=== PATIENT | female | born 1970 | race African-American/Black ===

== ENCOUNTER 2018-01-17 12:22 | Emergency (ER) | payer MEDICARE, OTHER ==
[~2018-01-17] VITALS: Ht 149.9 cm; Wt 136.4 kg
[~2018-01-17 12:22] MED LIST: IBUP-2071 PO; LISI-661 PO
[2018-01-17] MEDS ORDERED: MET750 PO (12:29)
[2018-01-17] MEDS ORDERED: FURO40I IM (12:29)
[2018-01-17 15:38] LABS: BASOPHILS % (AUTO) 0.8 % (0.0-2.0); EOSINOPHILS % (AUTO) 1.8 % (1.0-6.0); HEMATOCRIT 35.8 % (36-46); LYMPHOCYTES # (AUTO) 4.2 K/uL (1.0-4.8); LYMPHOCYTES % (AUTO) 53.5 % (22.0-44.0); MEAN CORPUSCULAR HEMOGLOBIN 27.3 pg (26.0-34.0); MEAN CORPUSCULAR HGB CONC 33.5 G/dL (31.0-37.0); MEAN CORPUSCULAR VOLUME 82 fL (80-100); MONOCYTES # (AUTO) 0.5 K/uL (0.1-1.0); MONOCYTES % (AUTO) 6.5 % (2.0-9.0); NEUTROPHILS # (AUTO) 2.9 K/uL (1.8-7.7); NEUTROPHILS % (AUTO) 37.4 % (40.0-70.0); PLATELET COUNT (AUTO) 279 K/uL (150-450); RED BLOOD CELL COUNT(AUTO) 4.39 MIL/uL (4.00-5.20); RED CELL DISTRIBUTION WIDTH 13.8 % (11.5-14.5)
[2018-01-17 15:46] LABS: ANION GAP 8 mmol/L (8-16); CALCIUM, TOTAL 9.2 mg/dL (8.8-10.5); CARBON DIOXIDE 25 mmol/L (22-29); CHLORIDE 103 mmol/L (98-107); CREATININE 0.73 mg/dL (0.60-1.30); GLOMERULAR FILTR. RATE CALC > 60 mL/min (>60); GLUCOSE,RANDOM 87 mg/dL (70-110); POTASSIUM 4.3 mmol/L (3.5-5.1); SODIUM SERUM 136 mmol/L (136-145); UREA NITROGEN, BLOOD 11 mg/dL (7-18)
[2018-01-17 15:51] LABS: B-TYPE NATRIURETIC PEPTIDE 10 pg/mL (0-100)
[2018-01-17 15:53] LABS: ALANINE AMINOTRANSFERASE 20 U/L (12-78); ALBUMIN 3.3 g/dL (3.4-5.0); ALKALINE PHOSPHATASE 91 U/L (46-116); ASPARTATE AMINOTRANSFERASE 18 U/L (15-37); BILIRUBIN,TOTAL 0.4 mg/dL (0.1-1.0); CREATINE KINASE, TOTAL 53 U/L (26-192); TOTAL PROTEIN, SERUM 7.1 g/dL (6.4-8.2)
[2018-01-17 16:34] LABS: APPEARANCE,URINE CLOUDY (CLEAR); BILIRUBIN,URINE NEGATIVE (NEGATIVE); GLUCOSE, URINE (UA) NEGATIVE (NEGATIVE); KETONES,URINE NEGATIVE (NEGATIVE); LEUKOCYTE ESTERASE ,URINE NEGATIVE (NEGATIVE); NITRATE,URINE NEGATIVE (NEGATIVE); OCCULT BLOOD,URINE NEGATIVE (NEGATIVE); PH,URINE 6.5 (5.0-8.0); PROTEIN,URINE NEGATIVE (NEGATIVE)
[2018-01-17 18:16] VITALS: BP 105/56
[2018-01-17] MEDS ORDERED: RAPID SEQUENCE KIT [RSI] 1 EACH KIT ONE (18:24)
[2018-01-17] MEDS ORDERED: SUCCINYLCHOLINE CHLORIDE 20 MG/ML 10 ML VIAL ONE (18:25)
== END 2018-01-17 18:20 | disposition home or self-care (01) ==
LOC: EMS 12:25
DX: M47.812 Spondylosis without myelopathy or radiculopathy, cervical region (principal); M48.02 Spinal stenosis, cervical region; I10 Essential (primary) hypertension; R42 Dizziness and giddiness; M79.602 Pain in left arm; E66.01 Morbid (severe) obesity due to excess calories; Z88.0 Allergy status to penicillin; Z68.44 Body mass index [BMI] 60.0-69.9, adult
CPT/HCPCS: 36415; 70450; 71045; 72125; 80053; 81003; 82550; 83880; 84484; 85025; 93005; 99285; J0330

== ENCOUNTER 2022-05-18 11:57 | Emergency (ER) | payer MEDICARE, OTHER ==
[~2022-05-18] VITALS: Ht 149.9 cm; Wt 134.1 kg
[~2022-05-18 11:57] MED LIST changes: +FURO10VI34 IM; -LISI-661 PO; +LISI-893 PO; +METH-661 PO
[2022-05-18] MEDS ORDERED: DEXT354L PO (12:02)
[2022-05-18 12:06] VITALS: BP 158/118
[2022-05-18] MEDS ORDERED: METHOCARBAMOL 500 MG TABLET PO ONE (12:30)
[2022-05-18 12:52] LABS: COVID AG,FIA SOURCE NASOPHARYNGEAL
[2022-05-18 13:22] LABS: INFLUENZA TYPE A NEGATIVE FOR TYPE A (NEGATIVE); INFLUENZA TYPE B NEGATIVE FOR TYPE B (NEGATIVE)
[2022-05-18] MEDS ORDERED: METH-659 PO (13:43)
[2022-05-18] MEDS ORDERED: ALBU8.5H8 IH (13:43)
[2022-05-18] MEDS ORDERED: BENZ-70 PO (13:43)
[2022-05-18] MEDS ORDERED: CloNIDine HCL 0.1 MG TABLET PO ONE (14:00)
== END 2022-05-18 14:24 | disposition home or self-care (01) ==
LOC: EMS 11:57
DX: U07.1 COVID-19 (principal); I10 Essential (primary) hypertension; Z90.710 Acquired absence of both cervix and uterus; Z98.890 Other specified postprocedural states; Z87.39 Personal history of other diseases of the musculoskeletal system and connective tissue; Z88.0 Allergy status to penicillin
CPT/HCPCS: 71045; 87804; 99284

== ENCOUNTER 2022-06-04 15:21 | Emergency (ER) | payer MEDICARE, OTHER ==
[~2022-06-04] VITALS: Ht 147.3 cm; Wt 140.4 kg
[~2022-06-04 15:21] MED LIST changes: +ALBU8.5H8 IH; +BENZ-70 PO; +DEXT354L PO; +METH-659 PO
[2022-06-04] MEDS ORDERED: LOSA-382 PO (15:32)
[2022-06-04 16:06] LABS: BASOPHILS % (AUTO) 0.8 % (0.0-2.0); EOSINOPHILS % (AUTO) 0.7 % (1.0-6.0); LYMPHOCYTES # (AUTO) 2.6 K/uL (1.0-4.8); LYMPHOCYTES % (AUTO) 38.6 % (22.0-44.0); MEAN CORPUSCULAR HEMOGLOBIN 26.8 pg (26.0-34.0); MEAN CORPUSCULAR HGB CONC 32.5 G/dL (31.0-37.0); MEAN CORPUSCULAR VOLUME 82 fL (80-100); MONOCYTES # (AUTO) 0.5 K/uL (0.1-1.0); MONOCYTES % (AUTO) 7.3 % (2.0-9.0); NEUTROPHILS # (AUTO) 3.5 K/uL (1.8-7.7); NEUTROPHILS % (AUTO) 52.6 % (40.0-70.0); PLATELET COUNT (AUTO) 317 K/uL (150-450); RED BLOOD CELL COUNT(AUTO) 4.49 MIL/uL (4.00-5.20); RED CELL DISTRIBUTION WIDTH 14.6 % (11.5-14.5)
[2022-06-04 16:15] LABS: ANION GAP 11 mmol/L (8-16); CALCIUM, TOTAL 9.7 mg/dL (8.8-10.5); CARBON DIOXIDE 24 mmol/L (22-29); CHLORIDE 106 mmol/L (98-107); CREATININE 0.74 mg/dL (0.60-1.30); GLOMERULAR FILTR. RATE CALC > 60 mL/min (>60); GLUCOSE,RANDOM 87 mg/dL (70-110); POTASSIUM 3.7 mmol/L (3.5-5.1); SODIUM SERUM 141 mmol/L (136-145); UREA NITROGEN, BLOOD 7 mg/dL (7-18)
[2022-06-04 16:21] LABS: ALANINE AMINOTRANSFERASE 19 U/L (12-78); ALBUMIN 3.5 g/dL (3.4-5.0); ALKALINE PHOSPHATASE 90 U/L (46-116); ASPARTATE AMINOTRANSFERASE 21 U/L (15-37); BILIRUBIN,TOTAL 0.7 mg/dL (0.1-1.0); TOTAL PROTEIN, SERUM 7.6 g/dL (6.4-8.2)
[2022-06-04] MEDS ORDERED: CloNIDine HCL 0.1 MG TABLET PO ONE (17:00)
[2022-06-04] MEDS ORDERED: LISI-894 PO (17:57)
[2022-06-04] MEDS ORDERED: ACETAMINOPHEN 500 MG TABLET PO ONE (18:00)
[2022-06-04 18:01] VITALS: BP 161/96
== END 2022-06-04 18:18 | disposition home or self-care (01) ==
LOC: EMS 15:26
DX: I10 Essential (primary) hypertension (principal); R42 Dizziness and giddiness; R51.9 Headache, unspecified; M19.90 Unspecified osteoarthritis, unspecified site; K76.0 Fatty (change of) liver, not elsewhere classified; Z73.3 Stress, not elsewhere classified; Z90.710 Acquired absence of both cervix and uterus; Z98.890 Other specified postprocedural states; Z87.39 Personal history of other diseases of the musculoskeletal system and connective tissue; Z88.0 Allergy status to penicillin
CPT/HCPCS: 70450; 80053; 84484; 85025; 93005; 99285

== ENCOUNTER 2023-06-01 15:48 | Emergency (ER) | payer MEDICARE, OTHER ==
[~2023-06-01] VITALS: Ht 147.3 cm; Wt 122.7 kg
[~2023-06-01 15:48] MED LIST changes: -BENZ-70 PO; -DEXT354L PO; -FURO10VI34 IM; -IBUP-2071 PO; -LISI-893 PO; +LISI-894 PO; +LOSA-382 PO; -METH-659 PO; -METH-661 PO
[2023-06-01 15:52] VITALS: TEMP 97.9
[2023-06-01 16:46] LABS: BASOPHILS % (AUTO) 0.4 % (0.0-2.0); EOSINOPHILS % (AUTO) 2.3 % (1.0-6.0); HEMATOCRIT 37.3 % (36-46); HEMOGLOBIN 12.1 g/dL (12.0-16.0); LYMPHOCYTES # (AUTO) 3.7 K/uL (1.0-4.8); LYMPHOCYTES % (AUTO) 50.6 % (22.0-44.0); MEAN CORPUSCULAR HEMOGLOBIN 26.9 pg (26.0-34.0); MEAN CORPUSCULAR HGB CONC 32.4 G/dL (31.0-37.0); MEAN CORPUSCULAR VOLUME 83 fL (80-100); MONOCYTES # (AUTO) 0.4 K/uL (0.1-1.0); MONOCYTES % (AUTO) 5.1 % (2.0-9.0); NEUTROPHILS # (AUTO) 3.1 K/uL (1.8-7.7); NEUTROPHILS % (AUTO) 41.6 % (40.0-70.0); PLATELET COUNT (AUTO) 316 K/uL (150-450); RED BLOOD CELL COUNT(AUTO) 4.48 MIL/uL (4.00-5.20); RED CELL DISTRIBUTION WIDTH 14.5 % (11.5-14.5)
[2023-06-01 16:54] LABS: ANION GAP 9 mmol/L (8-16); CALCIUM, TOTAL 9.6 mg/dL (8.8-10.5); CARBON DIOXIDE 29 mmol/L (22-29); CHLORIDE 104 mmol/L (98-107); GLOMERULAR FILTR. RATE CALC > 60 mL/min (>60); GLUCOSE,RANDOM 97 mg/dL (70-110); POTASSIUM 3.1 mmol/L (3.5-5.1); SODIUM SERUM 142 mmol/L (136-145)
[2023-06-01 17:00] LABS: ALANINE AMINOTRANSFERASE 13 U/L (12-78); ALBUMIN 3.4 g/dL (3.4-5.0); ALKALINE PHOSPHATASE 99 U/L (46-116); ASPARTATE AMINOTRANSFERASE 13 U/L (15-37); BILIRUBIN,TOTAL 0.4 mg/dL (0.1-1.0); TOTAL PROTEIN, SERUM 7.5 g/dL (6.4-8.2)
[2023-06-01 17:44] VITALS: BP 157/96; PULSE 82; RESP 16
[2023-06-01] MEDS ORDERED: POTASSIUM CHLORIDE 10% 40 MEQ/30 ML LIQUID UDCUP PO ONE (17:45)
[2023-06-01] MEDS ORDERED: MECL-134 PO (17:46)
[2023-06-01] MEDS ORDERED: ACET-66 PO (17:46)
== END 2023-06-01 18:13 | disposition home or self-care (01) ==
LOC: EMS 15:48
DX: R42 Dizziness and giddiness (principal); F41.9 Anxiety disorder, unspecified; E87.6 Hypokalemia; I10 Essential (primary) hypertension; M19.90 Unspecified osteoarthritis, unspecified site; K76.0 Fatty (change of) liver, not elsewhere classified; Z90.710 Acquired absence of both cervix and uterus; Z98.890 Other specified postprocedural states; Z88.0 Allergy status to penicillin
CPT/HCPCS: 99285; 71045; 80053; 84484; 85025; 36415; 93005; G0480

== ENCOUNTER 2025-02-05 08:42 | Emergency (ER) | payer MEDICARE, OTHER ==
[~2025-02-05] VITALS: Ht 149.9 cm; Wt 127.3 kg
[~2025-02-05 08:42] MED LIST changes: +ACET-66 PO; +MECL-134 PO
[2025-02-05] MEDS ORDERED: FERR-89 PO (08:53)
[2025-02-05] MEDS ORDERED: FURO40TA5 PO (08:53)
[2025-02-05] MEDS ORDERED: GABA-1181 PO (08:53)
[2025-02-05] MEDS ORDERED: AMLO10TA55 PO (08:53)
[2025-02-05] MEDS ORDERED: SEMA2.4P SQ (08:53)
[2025-02-05 10:44] LABS: TROPONIN I-HIGH SENSITIVITY Less Than 4 ng/L (<51)
[2025-02-05] MEDS: KETOROLAC TROMETHAMINE 30 MG/ML VIAL IM ONE (10:50)
[2025-02-05] MEDS: TraMADol HCL 50 MG TABLET PO ONE (10:50)
[2025-02-05] MEDS ORDERED: IBUP-1492 PO (11:15)
[2025-02-05 11:25] VITALS: BP 130/82; PULSE 78; RESP 18; TEMP 98.1; O2SAT 98
== END 2025-02-05 11:28 | disposition home or self-care (01) ==
LOC: EMS 08:44
DX: R07.9 Chest pain, unspecified (principal); R51.9 Headache, unspecified; J45.909 Unspecified asthma, uncomplicated; I10 Essential (primary) hypertension; K76.0 Fatty (change of) liver, not elsewhere classified; Z88.0 Allergy status to penicillin; Z90.710 Acquired absence of both cervix and uterus; Z79.899 Other long term (current) drug therapy
CPT/HCPCS: 99284; 71045; 84484; 36415; 96372; J1885